=== PATIENT | female | born 1970 ===

== ENCOUNTER 2017-05-21 00:26 | Emergency (ER) | payer OTHER ==
[2017-05-21 00:51] VITALS: TEMP 98.5
--- NOTE | 2017-05-21 01:32 | ED PDOC ---
Upper Extremity Pain/Injury Time Seen by Provider: 05/21/17 00:59 Chief Complaint (Nursing): Dizziness/Lightheaded Chief Complaint (Provider): Right Arm Pain History Per: Patient History/Exam Limitations: no limitations Onset/Duration Of Symptoms: Hrs (x1) Current Symptoms Are (Timing): Still Present Additional Complaint(s): 46 y/o female with a past medical history of HTN and hypothyroidism, who presents to the ED complaining of right sided arm pain x3 hours. Patient reports feeling what she describes as a sharp burning pain in her right arm associated with numbness to her hand. Denies associated headache, fever, nausea , vomiting, diarrhea, cough, and shortness of breath. Reports initially feeling a sense of dizziness which has since resolved. Denies a history of injury or associated weakness. States symptoms started while at rest. Also says she noticed that the veins on her hand became more prominent, as well as an elevated BP when she measured at home. Says this concerned her, causing her to present to the ED. Reports taking 1 aspirin prior to arrival. PMD: Tahir Lindsay MD Past Medical History Reviewed: Historical Data, Nursing Documentation, Vital Signs Vital Signs: Last Vital Signs Temp 98.5 F 05/21/17 00:43 Pulse 98 H 05/21/17 00:43 Resp 18 05/21/17 00:43 BP 138/82 05/21/17 00:43 Pulse Ox 100 05/21/17 00:43 - Medical History PMH: HTN, Hypothyroidism - Surgical History Other surgeries: Tubal ligation, ovarian cyst surgery, left arm surgery - Family History Family History: States: Unknown Family Hx - Social History Current smoker - smoking cessation education provided: No Alcohol: Occasional Drugs: Denies - Home Medications Home Medications: Ambulatory Orders Medication Instructions Recorded Valacyclovir HCl [Valtrex] 1,000 mg PO TID #21 tablet 05/21/17 traMADol [Ultram] 50 mg PO TID PRN #12 tab 05/21/17 - Allergies Allergies/Adverse Reactions: Allergies Allergy/AdvReac Type Severity Reaction Status Date / Time No Known Allergies Allergy Unverified 06/07/13 14:18 Review of Systems ROS Statement: Except As Marked, All Systems Reviewed And Found Negative Constitutional: Negative for: Fever Respiratory: Negative for: Cough, Shortness of Breath Gastrointestinal: Negative for: Nausea, Vomiting, Diarrhea Musculoskeletal: Positive for: Arm Pain Neurological: Positive for: Numbness, Dizziness (resolved). Negative for: Weakness, Headache Physical Exam - Reviewed Nursing Documentation Reviewed: Yes Vital Signs Reviewed: Yes - Physical Exam Appears: Positive for: Non-toxic, No Acute Distress Head Exam: Positive for: ATRAUMATIC, NORMAL INSPECTION, NORMOCEPHALIC Skin: Positive for: Normal Color, Warm, Dry. Negative for: Rash Eye Exam: Positive for: EOMI, Normal appearance, PERRL Neck: Positive for: Normal, Painless ROM, Supple Cardiovascular/Chest: Positive for: Regular Rate, Rhythm. Negative for: Murmur Respiratory: Positive for: Normal Breath Sounds. Negative for: Respiratory Distress Gastrointestinal/Abdominal: Positive for: Normal Exam, Bowel Sounds, Soft. Negative for: Tenderness Back: Positive for: Normal Inspection. Negative for: L CVA Tenderness, R CVA Tenderness, Vertebral Tenderness Extremity: Positive for: Normal ROM, Capillary Refill (2+). Negative for: Tenderness, Pedal Edema, Deformity, Swelling Neurologic/Psych: Positive for: Alert, Oriented. Negative for: Motor/Sensory Deficits - Laboratory Results Result Diagrams: 05/21/17 02:23 05/21/17 02:23 - ECG O2 Sat by Pulse Oximetry: 100 (RA) Pulse Ox Interpretation: Normal Medical Decision Making Medical Decision Making: Time: 01:19 Initial Impression: 46 y/o female with right arm pain likely radiculopathy vs neuralgia Initial Plan: --EKG --CMP --Troponin I --Urine --CBC w/ differential --PTT/PT --Toradol 15mg IV --Heplock insertion --Urinalysis --Reevaluation Time: 03:31 Upon reevaluation, patient reports improvement of symptoms. Labs reviewed and no clinically significant abnormalities were found. In provider's opinion, patient may be having early neuralgia related to possible shingles. This was discussed with her and she is open to taking Valtrex. Patient was advised to follow up with PMD. Scribe Attestation: Documented by Dioni Hair, acting as a scribe for David Hummel MD. Provider Scribe Attestation: All medical record entries made by the Scribe were at my direction and personally dictated by me. I have reviewed the chart and agree that the record accurately reflects my personal performance of the history, physical exam, medical decision making, and the department course for this patient. I have also personally directed, reviewed, and agree with the discharge instructions and disposition. Disposition - Clinical Impression Clinical Impression: Radiculopathy affecting upper extremity - Patient ED Disposition Is Patient to be Admitted: No Counseled Patient/Family Regarding: Studies Performed, Diagnosis, Need For Followup, Rx Given - Disposition Disposition: Routine/Home Disposition Time: 03:31 Condition: STABLE Prescriptions: traMADol [Ultram] 50 mg PO TID PRN #12 tab PRN Reason: arm pain Valacyclovir HCl [Valtrex] 1,000 mg PO TID #21 tablet Instructions: Radiculopathy Forms: [employer] (Turkmen)
[2017-05-21 02:22] LABS: SQUAMOUS EPITHIAL 1 /hpf (0-5); URINE BILIRUBIN NEGATIVE (NEGATIVE); URINE BLOOD NEGATIVE (NEGATIVE); URINE CLARITY CLEAR (Clear); URINE COLOR STRAW (YELLOW); URINE GLUCOSE (UA) NEG (Normal); URINE LEUKOCYTE ESTERASE NEG Leu/uL (Negative); URINE PROTEIN NEGATIVE (NEGATIVE); URINE UROBILINOGEN 0.2-1.0 mg/dL (0.2-1.0)
[2017-05-21 02:26] LABS: BASO # 0.1 K/uL (0.0-0.2); BASO % 2.1 % (0.0-2.0); EOS # 0.4 K/uL (0.0-0.7); EOS % 6.4 % (0.0-4.0); LYMPH # 2.6 K/uL (1.0-4.3); LYMPH % 37.1 % (20.0-40.0); MEAN CELL VOLUME 86.6 fl (81.0-99.0); MEAN CORPUSCULAR HEMOGLOBIN 28.7 pg (27.0-31.0); MEAN CORPUSCULAR HGB CONC 33.1 g/dL (33.0-37.0); MEAN PLATELET VOLUME 9.2 fl (7.2-11.7); MONO # 0.7 K/uL (0.0-0.8); MONO % 10.6 % (0.0-10.0); NEUT % 43.8 % (50.0-75.0); NRBC % 0.1 % (0.0-0.0); RBC 4.19 Mil/uL (3.80-5.20); RED CELL DISTRIBUTION WIDTH 18.3 % (11.5-14.5); WHITE BLOOD COUNT 6.9 K/uL (4.8-10.8)
[2017-05-21 02:35] LABS: ALB/GLOB RATIO 0.9 (1.0-2.1); ALBUMIN 3.9 g/dL (3.5-5.0); ALT/SGPT 130 U/L (9-52); AST/SGOT 135 U/L (14-36); BLOOD UREA NITROGEN 14 mg/dl (7-17); CALCIUM 8.9 mg/dL (8.4-10.2); GFR AFRICAN-AMERICAN > 60; GFR NON-AFRICAN AMERICAN > 60
[2017-05-21 02:46] LABS: INR 1.2 (0.9-1.2); PARTIAL THROMBOPLASTIN TIME 33.9 Seconds (25.6-37.1); PROTHROMBIN TIME 12.8 Seconds (9.8-13.1)
[2017-05-21 04:01] VITALS: BP 131/97; PULSE 79; RESP 16; O2SAT 98
--- NOTE | 2017-05-21 09:08 | CARD ---
APPROVED REPORT EKG Measurement Heart [id number] <Conclusion> Normal sinus rhythm Left axis deviation Prolonged QT Abnormal ECG
== END 2017-05-21 03:56 | disposition home or self-care (01) ==
LOC: H.ER 00:26
DX: M79.601 Pain in right arm (principal); R20.0 Anesthesia of skin; M54.12 Radiculopathy, cervical region; I10 Essential (primary) hypertension; E03.9 Hypothyroidism, unspecified
CPT/HCPCS: 80053; 81003; 84484; 85025; 85610; 85730; 93005; 96374; 99285; J1885

== ENCOUNTER 2018-06-24 13:48 | Emergency (ER) | payer BC, OTHER ==
[2018-06-24] MEDS ORDERED: Sodium Chloride 0.9% 1,000 ML IV STA (13:52)
[2018-06-24] MEDS ORDERED: DiphenhydrAMINE 50 mg/ml Inj IVP STA (13:52)
--- NOTE | 2018-06-24 14:15 | ED PDOC ---
HPI: Allergic Reaction Time Seen by Provider: 06/24/18 13:50 Chief Complaint (Nursing): Allergic Reaction Chief Complaint (Provider): Allergic Reaction History Per: Patient History/Exam Limitations: no limitations Onset/Duration Of Symptoms: Mins (30x minutes prior to arrival) Current Symptoms Are (Timing): Still Present Context: Food Possible Cause: Food (shrimp) Associated Symptoms: Skin Rash, Swelling (lip), Dyspnea, Redness Home/EMS Treatment: None Severity: Moderate Additional Complaint(s): 47 year old female with a medical history of hypertension presents to the ED for an evaluation of an allergic reaction that started 30x minutes prior to arrival. Patient states that 30x minutes prior to arrival she was eating a moderate amount of shrimp when she suddenly felt redness, facial flushing, and shortness of breath. Patient also reports having lip swelling. Patient denies taking any medications, and came to the ED right away. Patient denies having a history of allergies, but notes that she had allergy testing done 3-4x years ago out of curiosity. Patient denies having any other food allergies. PMD: None provided Past Medical History Reviewed: Historical Data, Nursing Documentation, Vital Signs Vital Signs: Last Vital Signs Temp 98.4 F 06/24/18 13:51 Pulse 139 H 06/24/18 13:51 Resp 18 06/24/18 13:51 BP 165/104 H 06/24/18 13:51 Pulse Ox 99 06/24/18 13:51 SHAVON Report Viewed: Yes - Medical History PMH: HTN, Hypothyroidism Denies: Chronic Kidney Disease - Surgical History Other surgeries: left arm surgery - Family History Family History: States: No Known Family Hx - Social History Current smoker - smoking cessation education provided: Yes Alcohol: Social Drugs: Denies - Immunization History Hx Tetanus Toxoid Vaccination: No Hx Influenza Vaccination: No Hx Pneumococcal Vaccination: No - Home Medications Home Medications: Ambulatory Orders Medication Instructions Recorded ALPRAZolam [Xanax] 0.25 mg PO ONCE #3 tab 01/07/18 Levothyroxine [Synthroid] 0.1 mg PO DAILY 01/07/18 hydroCHLOROthiazide [Hydrodiuril] 25 mg PO DAILY 01/07/18 DiphenhydrAMINE [Benadryl] 50 mg PO Q6 PRN #24 cap 06/24/18 Epinephrine [Epipen] 0.3 mg IM ONCE PRN #2 auto.injct 06/24/18 Famotidine [Pepcid] 20 mg PO BID #10 tab 06/24/18 Prednisone [Deltasone] 3 tab PO DAILY #12 tablet 06/24/18 - Allergies Allergies/Adverse Reactions: Allergies Allergy/AdvReac Type Severity Reaction Status Date / Time shrimp Allergy ANAPHYLAXIS Verified 06/24/18 15:58 Review of Systems ROS Statement: Except As Marked, All Systems Reviewed And Found Negative ENT: Positive for: Other (redness, facial flushing, lip swelling) Respiratory: Positive for: Shortness of Breath Physical Exam - Reviewed Nursing Documentation Reviewed: Yes Vital Signs Reviewed: Yes - Physical Exam Appears: Positive for: Well, Non-toxic, No Acute Distress Head Exam: Positive for: ATRAUMATIC, NORMOCEPHALIC Skin: Positive for: Warm, Dry, Rash (moderate erythema to face, upper arms, upper extemities. Urticaria on trunk.) ENT: Positive for: Other (uvula within normal limits) Cardiovascular/Chest: Positive for: Regular Rate, Rhythm Respiratory: Positive for: Normal Breath Sounds Neurological/Psych: Positive for: Awake, Alert, Oriented (3x) - ECG O2 Sat by Pulse Oximetry: 99 (RA) Pulse Ox Interpretation: Normal Disposition - Clinical Impression Clinical Impression: Acute allergic reaction - Patient ED Disposition Is Patient to be Admitted: No - Disposition Referrals: [facility] [Outside] Disposition: Routine/Home Disposition Time: 17:04 Condition: FAIR Prescriptions: DiphenhydrAMINE [Benadryl] 50 mg PO Q6 PRN #24 cap PRN Reason: Itching / Pruritus Epinephrine [Epipen] 0.3 mg IM ONCE PRN #2 auto.injct PRN Reason: Anaphylaxis Famotidine [Pepcid] 20 mg PO BID #10 tab Prednisone [Deltasone] 3 tab PO DAILY #12 tablet Instructions: Food Allergy Forms: [facility] ED School/Work Excuse Medical Decision Making Medical Decision Makin:50 Initial impression: 47 year old female with acute allergic reaction Initial plan: Patient immediately seen by provider. Patient given solumedrol 125 mg, bendryl 50 mg, and pepcid 20 mg. Patient shows an improvement in symptoms within 5x minutes. * IV NS 1,000 ml IV 500 mls/hr * observation for 2x hours * reevaluation Scribe Attestation: Documented by Connie Liz, acting as a scribe for Stephania Eagle PA-C. Provider Scribe Attestation: All medical record entries made by the Scribe were at my direction and personally dictated by me. I have reviewed the chart and agree that the record accurately reflects my personal performance of the history, physical exam, medical decision making, and the department course for this patient. I have also personally directed, reviewed, and agree with the discharge instructions and disposition.
[2018-06-24 15:20] VITALS: RESP 20
[2018-06-24 17:13] VITALS: BP 144/92; PULSE 98; TEMP 98
[2018-06-24 23:11] VITALS: O2SAT 99
== END 2018-06-24 17:04 | disposition home or self-care (01) ==
LOC: H.ER 13:48
DX: T78.40XA Allergy, unspecified, initial encounter (principal); E03.9 Hypothyroidism, unspecified; I10 Essential (primary) hypertension
CPT/HCPCS: 96361; 96374; 96375; 99285; J1200; J2930; J7030